=== PATIENT | female | born 1985 | race Caucasian/White ===

== ENCOUNTER → 2017-06-06 | Emergency (ER) | payer OTHER ==
[~2017-06-06] VITALS: Ht 165.1 cm; Wt 62.1 kg
== END | disposition home or self-care (01) ==
LOC: ER 10:38
DX: O26.851 Spotting complicating pregnancy, first trimester (principal); Z34.01 Encounter for supervision of normal first pregnancy, first trimester

== ENCOUNTER 2017-06-17 23:49 | Day surgery (SDC) | payer OTHER ==
[~2017-06-17] VITALS: Ht 165.1 cm; Wt 59.0 kg
[2017-06-18] MEDS ORDERED: DOXYCYCLINE HY100 MG PO (13:04)
[2017-06-18] MEDS ORDERED: NAPROXEN500 MG PO (13:05)
== END 2017-06-18 17:00 | disposition home or self-care (01) ==
LOC: ER 23:49 → CIR.AMB 06-18 10:27
DX: O03.4 Incomplete spontaneous abortion without complication (principal)